=== PATIENT | male | born 1950 | race Two or more races ===

== ENCOUNTER 2017-09-08 19:05 | Emergency (ER) | payer SELFPAY ==
[~2017-09-08] VITALS: Ht 180.3 cm; Wt 90.0 kg
[2017-09-08 19:07] VITALS: BP 176/105
[2017-09-08] MEDS ORDERED: DIPHENHYDRAMINE 50 MG CAPSULE ONE (19:39)
[2017-09-08] MEDS ORDERED: DEXAMETHASONE 4 MG TABLET ONE (19:52)
[2017-09-08] MEDS ORDERED: DIPHENHYDRAMINE 25 MG CAPSULE PO ONE (20:00)
[2017-09-08] MEDS ORDERED: PLEASE ENTER ALLERGIES MC SCH (20:00)
[2017-09-08] MEDS ORDERED: DEXAMETHASONE 4 MG TABLET PO ONE (20:00)
[2017-09-08] MEDS ORDERED: ALBUTEROL/IPRATROPIUM 2.5MG/0.5MG, 3 ML ONE (20:28)
[2017-09-08] MEDS ORDERED: ALBUTEROL/IPRATROPIUM 2.5MG/0.5MG, 3 ML NPPB ONE (20:30)
== END 2017-09-08 21:14 | disposition home or self-care (01) ==
LOC: ED 21:00
DX: T78.3XXA Angioneurotic edema, initial encounter (principal); R06.00 Dyspnea, unspecified; Y92.9 Unspecified place or not applicable
CPT/HCPCS: 71045; 93005; 94640; 99284; J7512; Q0163; J7620